=== PATIENT | male | born 1955 | race Caucasian/White ===

== ENCOUNTER 2025-09-09 07:17 | Day surgery (SDC) | payer MEDICARE ==
[~2025-09-09 07:17] MED LIST: Sodium Chloride 0.9% 10 ML Syringe FLUSH PRN
[2025-09-09] MEDS ORDERED: Propofol 200 MG/20 ML SDV IV ONE (07:18)
[2025-09-09] MEDS: Lactated Ringers 1,000 ML IV SCH (07:58)
== END 2025-09-09 10:32 | disposition home or self-care (01) ==
LOC: FB.SDS 07:17
PROVIDERS: ATTEND Surgery
DX: Z12.11 Encounter for screening for malignant neoplasm of colon (principal); Z88.0 Allergy status to penicillin; Z88.8 Allergy status to other drugs, medicaments and biological substances; Z86.16 Personal history of COVID-19; Z87.891 Personal history of nicotine dependence; Z79.899 Other long term (current) drug therapy
CPT/HCPCS: A9270; G0121; J2704; J7120; 00811